=== PATIENT | female | born 1990 | race Caucasian/White ===

== ENCOUNTER 2018-05-25 13:45 | Emergency (ER) | payer MEDICAID ==
[~2018-05-25] VITALS: Ht 172.7 cm; Wt 69.1 kg
[2018-05-25 13:52] VITALS: Ht 172.7 cm; Wt 69.1 kg
[2018-05-25 16:39] VITALS: BP 137/71
== END 2018-05-25 16:39 | disposition home or self-care (01) ==
LOC: ED 13:45
DX: N76.0 Acute vaginitis (principal); Z88.0 Allergy status to penicillin
CPT/HCPCS: 87491; 87591